=== PATIENT | male | born 1945 | race Caucasian/White ===

== ENCOUNTER 2017-07-08 21:24 | Emergency (ER) | payer MEDICARE, OTHER ==
[2017-07-08 21:44] LABS: HEMATOCRIT 35.7 % (42.0-52.0); MEAN CELL VOLUME 89.9 fl (81-97); MEAN CORPUSCULAR HEMOGLOBIN 30.2 pg (27-33); MEAN CORPUSCULAR HGB CONC 33.6 g/dl (32-36); MEAN PLATELET VOLUME 8.7 fl (7.4-10.4); PLATELET COUNT 306 K/uL (130-400); RED BLOOD COUNT 3.97 M/uL (4.40-5.70); RED CELL DISTRIBUTION WIDTH 13.4 % (11.5-14.5); WHITE BLOOD COUNT W/O DIFF 8.9 K/uL (4.2-12.2)
--- NOTE | 2017-07-08 21:49 | Emergency Department Record ---
History of Present Illness - General Chief Complaint: Shortness of breath Stated Complaint: FOOD CAUGHT IN TRACH Time Seen by Provider: 07/08/17 21:35 Source: Patient Mode of Arrival: Stretcher Limitations: No limitations - History of Present Illness Initial Comments: The patient is here due to coughing and SOB for one day. The symptoms did start this AM. 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 He also has no humidified O2 at home. Now he feels like something is stuck in his lungs. He denies any fever, CP, back pain or AP. MD Complaint: Cough, Shortness of breath Onset/Timin -: Hour(s) Known History Of: Other Associated Symptoms: Denies other symptoms Treatments Prior to Arrival: None - Related Data Home Oxygen Therapy: No Allergies Allergy/AdvReac Type Severity Reaction Status Date / Time No Known Allergies AdvReac Unknown PT UNSURE Verified 07/08/17 21:36 OF REACTION Travel Screening - Travel/Exposure Within Last 30 Days Have you traveled within the last 30 days?: No - Travel/Exposure Within Last Year Have you traveled outside the [place] in the last year?: No - Additonal Travel Details Have you been exposed to anyone with a communicable illness?: No - Travel Symptoms Symptom Screening: None Review of Systems Constitutional: Denies: Chills, Fever Eyes: Denies: Eye discharge ENT: Reports: Congestion Respiratory: Reports: Cough, Dyspnea. Denies: Hemoptysis Cardiovascular: Denies: Arrhythmia, Chest pain Past Medical History - SOCIAL HISTORY Smoking Status: Former smoker - RESPIRATORY Hx Respiratory Disorders: No - CARDIOVASCULAR Hx Cardio Disorders: No - NEURO Hx Neuro Disorders: No - GI Hx GI Disorders: No - Hx Genitourinary Disorders: No - ENDOCRINE Hx Endocrine Disorders: No - MUSCULOSKELETAL Hx Musculoskeletal Disorders: No - PSYCH Hx Psych Problems: No - HEMATOLOGY/ONCOLOGY Hx Cancer: Yes (laryngeal) Hx Chemotherapy: Yes Hx Radiation Therapy: Yes Family Medical History Any Significant Family History?: No Physical Exam - General General Appearance: Alert, Cooperative, No acute distress - Head Head exam: Atraumatic, Normocephalic, Normal inspection - Eye Eye exam: Normal appearance, PERRL - ENT Throat exam: negative: Normal inspection - Neck Neck exam: Normal inspection, Full ROM. negative: Lymphadenopathy, Meningismus , Tenderness - Respiratory Respiratory exam: Rhonchi (bilaterally at the bases.). negative: Normal lung sounds bilaterally - Cardiovascular Cardiovascular Exam: Regular rate, Normal rhythm, Normal heart sounds - GI/Abdominal GI/Abdominal exam: Soft, Normal bowel sounds. negative: Tenderness - Extremities Extremities exam: Normal inspection, Full ROM, Normal capillary refill. negative: Tenderness Course Vital Signs 07/08/17 21:29 Pulse Rate 68 Respiratory 24 Rate Blood Pressure 156/73 Pulse Ox 91 L - Reevaluation(s) Reevaluation #1: The patient is doing better and his O2 sats are running 96-97% on humidified O2. I did explain to him that it appears he has a Left Lung Pneumonia and I do believe he will need a bronchoscopy. Due to that fact I did recommend transfer to a larger hospital. The patient would like to go to [facility] so we will make contact with them. 07/08/17 22:16 Reevaluation #2: The patient is doing better. His oxygen is improved with the humidified O2 and ALbuterol. Due to the fact I believe the patient needs a Bronchoscopy and he would like to go to [facility] I did discuss the case with Dr. Zavala in the ER and he does accept the patient in transfer. 07/08/17 22:29 Medical Decision Making - Data Complexity MDM Data: Labs Ordered and/or Reviewed, X-Ray Ordered and/or Reviewed, EKG Ordered and/or Reviewed - Lab Data Result diagrams: 07/08/17 21:35 07/08/17 21:35 - EKG Data -: EKG Interpreted by Me EKG: No Acute Changes, Normal EKG - Radiology Data Radiology results: Report reviewed (CXR: Left lower lung infiltrate.) Disposition Disposition: Transfer Clinical Impression: Pneumonia Qualifiers: Pneumonia type: due to unspecified organism Laterality: left Lung location: unspecified part of lung Qualified Code(s): J18.9 - Pneumonia, unspecified organism Disposition: Acute Care Hospital Transfer Transfer To: [facility]. Reason For Transfer: Pulmonology Accepting Physician: Sally Time Discussed w/Accepting Physician: 22:31 Condition: (2) Stable Instructions: Dyspnea (ED) Forms: Patient Portal Access Time of Disposition: 22:31 Quality - Quality Measures Quality Measures: N/A - Blood Pressure Screening View Details: Yes Does Patient Have Any of the Following: No Blood Pressure Classification: Hypertensive Reading Systolic Measurement: 156 Diastolic Measurement: 73 Screening for High Blood Pressure: < Pre-Hypertensive BP, F/U Documented > [ [id number]] Pre-Hypertensive Follow-up Interventions: Referral to alternative/primary care provider.
[2017-07-08] MEDS ORDERED: ALBUTEROL SULFATE (0.083%) 2.5 MG/3 ML NEB INH ONE (21:54)
[2017-07-08 21:58] LABS: BLOOD UREA NITROGEN 20 mg/dL (8-23); EST GLOMERULAR FILTRATION RATE > 60 mL/min
[2017-07-08 22:01] LABS: GLUCOSE,RANDOM 124 mg/dL (74-109)
[2017-07-08 22:04] LABS: CREATINE PHOSPHOKINASE 74 U/L (39-308)
[2017-07-08 22:05] LABS: CKMB 3.5 ng/mL (<6.73)
[2017-07-08] MEDS ORDERED: CEFTRIAXONE SODIUM 1 GM in 0.9 % SODIUM CHLORIDE 100ML 100 ML IVPB ONE (22:13)
[2017-07-08] MEDS ORDERED: AZITHROMYCIN 500 MG in 0.9 % SODIUM CHLORIDE 250ML 250 ML IVPB ONE (22:29)
--- NOTE | 2017-07-09 08:38 | RADIOLOGY REPORT ---
EXAM: CHEST AP or PA ONLY HISTORY: DIFFICULTY BREATHING. FEELS LIKE TRACH IS PLUGGED WITH PHLEGM. TECHNIQUE: Two AP upright views of the chest were obtained. COMPARISON: April 18, 2017 and April 11, 2013. FINDINGS: Postsurgical changes are present within the neck. The heart, mediastinum, and pulmonary vasculature are normal. There is osseous bridging between the posterolateral aspects of the left mid ribs. There is mild infiltrate within the left lower lung suggesting developing pneumonia. Minor interstitial infiltrates are also present within the lower lung condon and may be acute or chronic in nature. The upper lung condon are clear. There is no pneumothorax or effusion. IMPRESSION: 1. MILD INFILTRATE WITHIN THE LEFT LOWER LOBE SUGGESTING DEVELOPING PNEUMONIA. 2. MINOR NONSPECIFIC INTERSTITIAL INFILTRATES AT THE LUNG BASES, WHICH MAY BE ACUTE OR CHRONIC IN NATURE. JOB NUMBER: [id number] [facility]
== END 2017-07-08 22:47 | disposition short-term general hospital (02) ==
LOC: ER 21:24
DX: J18.9 Pneumonia, unspecified organism (principal); R05 Cough; R06.02 Shortness of breath; Z85.21 Personal history of malignant neoplasm of larynx; Z87.891 Personal history of nicotine dependence
CPT/HCPCS: 71010; 80048; 82550; 82553; 84484; 85027; 93005; 93010; 94640; 96374; 96375; 99285; J0456; J7050; J7613